=== PATIENT | male | born 1950 | race Caucasian/White ===

== ENCOUNTER 2022-08-18 17:39 | Emergency (ER) | payer OTHER ==
[~2022-08-18 17:39] MED LIST: Iopamidol 370 76% 50 ML VIAL FS ONE
[2022-08-18 18:18] LABS: Bilirubin Negative (Negative); Blood, Urine Large (Negative); Glucose, Urine (Dipstick) >=1000 mg/dL (Negative); Ketone, Urine Trace mg/dL (Negative); Leukocyte Large (Negative); Nitrite Positive (Negative); Protein, Urine (Dipstick) 100 mg/dL (Neg-Trace); Specific Gravity, Urine 1.025 (1.005-1.030)
[2022-08-18 18:20] LABS: Clarity Cloudy (Clear)
[2022-08-18 18:24] LABS: WBC/HPF Greater Than 50 HPF (0-3)
[2022-08-18 18:25] LABS: Bacteria/HPF 2+ HPF (None Seen); Transitional Epithelial 0-3 HPF (None Seen)
[2022-08-18] MEDS ORDERED: Sodium Chloride 0.9% 1,000 ML ONE ×2 (18:37→19:45)
[2022-08-18] MEDS ORDERED: Acetaminophen 500 MG TAB ONE (18:37)
[2022-08-18 19:00] LABS: ALT (SGPT) 22 U/L (8-55); AST (SGOT) 15 U/L (5-34); Albumin 3.3 g/dL (3.4-4.8); Alkaline Phosphatase 140 U/L (40-110); Anion Gap 20 mmol/L (10-20); BUN (Urea Nitrogen) 20 mg/dL (8.4-25.7); Bilirubin, Total 0.5 mg/dL (0.2-1.2); Calc. Creatinine Clearance 0 mL/min (70-130); Calcium 8.3 mg/dL (7.8-10.44); Carbon Dioxide 20 mmol/L (23-31); Chloride 90 mmol/L (98-107); Estimated GFR 82; Globulin 3.7 g/dL (2.4-3.5); Glucose 344 mg/dL (83-110); Lipase 16 U/L (8-78); Potassium 4.2 mmol/L (3.5-5.1); Sodium 126 mmol/L (136-145)
[2022-08-18 19:02] LABS: Band 3 % (5-11); Hemoglobin 16.6 g/dL (14.0-18.0); Lymphocytes 2 % (21-51); MDiff Complete? YES; Mean Corpuscular HGB CONC 32.8 g/dL (32.0-36.0); Mean Corpuscular Hemoglobin 28.8 pg (27.0-31.0); Mean Corpuscular Volume 87.7 fL (78.0-98.0); Mean Platelet Volume 5.7 fL (7.4-10.4); Monocytes 4 % (0-10); Neutrophil 91 % (42-75); Platelet Count 375 thou/uL (130-400); Platelet Morphology Comment Appears Adequate; RBC Distribution Width 12.4 % (11.5-14.5); Red Blood Cell (RBC) Count 5.75 mill/uL (4.70-6.10)
[2022-08-18] MEDS ORDERED: Sodium Chloride 0.9% 100 ML ONE (19:02)
[2022-08-18] MEDS ORDERED: cefTRIAXone\\ROCEPHIN 2 GM VIAL ONE (19:02)
[2022-08-18 19:37] LABS: SARS-CoV-2 NAA Rapid Test Not Detected (NotDetected)
[2022-08-18] MEDS ORDERED: Sodium Chloride 0.9% 250 ML 250 ML ONE (19:45)
[2022-08-18] MEDS ORDERED: Nitroglycerin 50 MG/250 ML BOT 250 ML ONE (19:45)
[2022-08-18] MEDS ORDERED: Dextrose 5 %-0.45 % NaCl 1,000 ML ONE (20:41)
[2022-08-18] MEDS ORDERED: Vancomycin HCl 750 MG VIAL ONE (22:08)
[2022-08-18] MEDS ORDERED: Sodium Chloride 0.9% 500 ML ONE (22:10)
[2022-08-19] MEDS ORDERED: Metoclopramide HCl 10 MG/2 ML VIAL ONE
[2022-08-19] MEDS ORDERED: Sodium Chloride 0.9% 100 ML ONE ×2
== END 2022-08-19 01:11 | disposition short-term general hospital (02) ==
LOC: NAV ERS 17:39
DX: N30.00 Acute cystitis without hematuria (principal); E86.0 Dehydration; E11.9 Type 2 diabetes mellitus without complications; E87.1 Hypo-osmolality and hyponatremia; N41.9 Inflammatory disease of prostate, unspecified; I10 Essential (primary) hypertension; E78.5 Hyperlipidemia, unspecified; J44.9 Chronic obstructive pulmonary disease, unspecified; Z20.822 Contact with and (suspected) exposure to COVID-19; Z79.82 Long term (current) use of aspirin; Z79.4 Long term (current) use of insulin; Z79.84 Long term (current) use of oral hypoglycemic drugs; Z79.899 Other long term (current) drug therapy
CPT/HCPCS: 74177; 80053; 81003; 81015; 83605; 83690; 85025; 87040; 87077; 87086; 87149; 87186; 96361; 96365; 96366; 96367; 96368; J0696; J1956; J2765; J3370; J3490; J7030; J7042; J7050; Q9967; U0002